=== PATIENT | male | born 1935 | race Caucasian/White ===

== ENCOUNTER → 2020-07-02 12:17 | Outpatient (CLI) | payer MEDICARE, SELFPAY ==
--- NOTE | ~2020-07-02 | XR_ITS ---
EXAMINATION: XR lumbar spine 2-3V DATE: 07/02/2020 14:23 INDICATION: Low back pain TECHNIQUE: Anteroposterior and lateral views of the lumbar spine, and cone-down lateral view of the l umbosacral junction were obtained. COMPARISON: None. FINDINGS: Lumbar levocurvature is noted. There are 2 mm of anterolisthesis of L4 on L5. There is mild loss of intervertebral disc space height at L3-4 and L5-S1. The vertebral body heights are normal. T here is no fracture. 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 Calcified athe rosclerosis is noted. . Small degenerative osteophytes project from the anterior endplates of multipl e vertebral bodies. IMPRESSION: 1. Mild to moderate lumbar spondylosis without acute findings. Reviewed, dictated and finalized at location A.
== END ==
PROVIDERS: PCP Family Medicine Adolescent Medicine; Visit Provider Family Medicine Adolescent Medicine
DX: M47.896 Other spondylosis, lumbar region (principal)
CPT/HCPCS: 72100

== ENCOUNTER → 2020-09-04 07:35 | Outpatient (CLI) | payer MEDICARE, SELFPAY ==
--- NOTE | ~2020-09-04 | MR_ITS ---
EXAMINATION: MR lumbar spine wo con DATE: 09/04/2020 08:15 INDICATION: Bilateral lumbar radiculopathy to the anterior thighs. TECHNIQUE: Magnetic resonance imaging (MRI) of the lumbar spine was performed without intravenous con trast. Sequences included sagittal T2-weighted FSE, sagittal T2-weighted FS FSE, sagittal T1-weighted FSE, and axial T2-weighted FSE. COMPARISON: Lumbar spine radiographs dated 07/02/2020 FINDINGS: 15 degrees lumbar levoscoliosis. 1 mm anterolisthesis L4 on L5. 3 mm retrolisthesis L5 on S1. Vertebr al body heights are normal. Normal marrow signal. Moderate right-sided predominant disc height loss at L3-L4 and moderate left-sided predominant disc height loss at L5-S1. Mild disc height loss at L4-L 5 and at the right side of L2-L3. The conus medullaris terminates at L1-L2. There is normal signal in the caudal spinal cord. Paravertebral soft tissues are unremarkable. The following disc levels are s pecifically discussed: T12-L1: The disc does not extend beyond the endplate margin. There is mild bilateral facet joint oste oarthritis. There is no neural foraminal stenosis. There is no central canal stenosis. L1-L2: Disc is mildly bulging. There is mild bilateral facet joint osteoarthritis. There is mild left neural foraminal stenosis. There is mild central canal stenosis. L2-L3: Disc is mildly bulging. There is mild bilateral, right greater than left, facet joint osteoart hritis. There is mild bilateral neural foraminal stenosis. There is mild central canal stenosis. L3-L4: Disc is bulging. There is moderate left and moderate to severe right facet joint osteoarthriti s. There is moderate bilateral neural foraminal stenosis. There is hypertrophy of the ligamentum flav um. There is an approximately 11 x 9 x 6 mm T2 hyperintense lesion in the posterior epidural space li tammy representing a synovial cyst arising from the right facet joint. There is severe central canal s tenosis. L4-L5: Disc is bulging with superimposed annular fissure and central disc extrusion with disc materia l extending 4 mm cephalad to the level of the inferior endplate of L4. There is severe bilateral face t joint osteoarthritis. There is hypertrophy of the ligamentum flavum. There is moderate bilateral n eural foraminal stenosis. There is moderate to severe central canal stenosis. L5-S1: Disc is bulging with superimposed annular fissure and left paracentral disc extrusion with dis c material extending up to 3 mm caudal to the level of the superior endplate of S1. There is moderate right and severe left facet joint osteoarthritis. There is mild right and moderate left neural kenneth inal stenosis. There is mild central canal stenosis as well as mild narrowing of the left lateral rec ess. IMPRESSION: 1. Severe lumbar spondylosis including severe central canal stenosis at L2-L3 due to combination of d isc bulge, ligamentum flavum hypertrophy as well as 11 x 9 x 6 mm likely synovial cyst. Reviewed, dictated and finalized at location A. IMPRESSION: 1. Severe lumbar spondylosis including severe central canal stenosis at L2-L3 d ue to combination of disc bulge, ligamentum flavum hypertrophy as well as 11 x 9 x 6 mm likely synovial cyst.
== END ==
PROVIDERS: PCP Family Medicine Adolescent Medicine; Visit Provider Family Medicine Adolescent Medicine
DX: M47.816 Spondylosis without myelopathy or radiculopathy, lumbar region (principal); M51.26 Other intervertebral disc displacement, lumbar region; M46.06 Spinal enthesopathy, lumbar region
CPT/HCPCS: 72148

== ENCOUNTER 2022-11-05 16:06 | Emergency (ER) | payer OTHER, MEDICARE, SELFPAY ==
[2022-11-05 16:15] VITALS: BP 152/70; PULSE 83; RESP 16; TEMP 37; O2SAT 97
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
[2022-11-05 20:17] VITALS: PULSE 81; RESP 16; O2SAT 97
== END 2022-11-05 20:18 | disposition home or self-care (01) ==
PROVIDERS: Emergency Provider Nurse Practitioner Family; PCP Family Medicine Adolescent Medicine
DX: S16.1XXA Strain of muscle, fascia and tendon at neck level, initial encounter (principal); I10 Essential (primary) hypertension; E78.00 Pure hypercholesterolemia, unspecified; M17.0 Bilateral primary osteoarthritis of knee; Z87.891 Personal history of nicotine dependence; V43.52XA Car driver injured in collision with other type car in traffic accident, initial encounter
CPT/HCPCS: 99283